=== PATIENT | female | born 1960 | race Caucasian/White ===

== ENCOUNTER → 2016-07-28 | Outpatient (CLI) | payer BC, OTHER ==
[~2016-07-28] MED LIST: ALPR0.25 PO; AMLO5TAB2 PO; ASPI325T32 PO; ATOR10TA66 PO; CITA20TA7 PO; ENAL10TA PO; ENOX40DI8 SC; LEVO88TA54 PO; METO-272 PO; METO-274 PO
--- NOTE | 2016-07-29 17:08 | Diagnostic Imaging Report ---
Bilateral screening mammogram The current study was also evaluated with a Computer Aided Detection (CAD) system. Indication: Screening. No current complaints stated on the questionnaire. COMPARISON: None available. Reportedly there is a prior from mammograms performed in [facility] 5 years ago, however this could not be located. Findings: The breasts are composed of scattered fibroglandular densities. Occasional benign-appearing calcifications are seen. There is an intramammary lymph node in the outer aspect of the left breast with no suspicious features. IMPRESSION: No mammographic evidence of malignancy. ACR BI-RADS Category 2: Benign findings. Result letter will be mailed to the patient. Note: At least 10% of breast cancer is not imaged by mammography. Dictated by: Dictated on workstation # [id number]
== END ==
LOC: RAD 15:05
PROVIDERS: ATTEND Family Medicine
DX: Z12.31 Encounter for screening mammogram for malignant neoplasm of breast (principal)
CPT/HCPCS: 77067

== ENCOUNTER 2016-09-09 05:41 | Outpatient (CLI) | payer OTHER ==
[~2016-09-09] VITALS: Ht 160 cm; Wt 77.1 kg
== END 2016-09-09 11:58 ==
LOC: PREOP 05:41
PROVIDERS: ATTEND Surgery
DX: Z01.818 Encounter for other preprocedural examination (principal); Z12.11 Encounter for screening for malignant neoplasm of colon

== ENCOUNTER 2016-09-13 09:46 | Day surgery (SDC) | payer OTHER ==
[~2016-09-13] VITALS: Ht 160 cm; Wt 77.1 kg
[~2016-09-13 09:46] MED LIST changes: -METO-272 PO; -METO-274 PO; +METO-370 PO; +METO-395 PO
[2016-09-13] MEDS ORDERED: NS IV 500 ML 500 ML ONE (09:51)
[2016-09-13] MEDS ORDERED: NS IV 500 ML 500 ML IV PRN (10:00)
[2016-09-13 10:30] VITALS: BP 129/77
[2016-09-13] MEDS ORDERED: fentaNYL INJECTION 100 MCG/2 ML AMP ONE ×2 (10:47→11:42)
[2016-09-13] MEDS ORDERED: MIDAZOLAM 2 MG/2 ML (VERSED) VIAL ONE ×3 (10:47)
--- NOTE | 2016-09-13 11:00 | Conscious Sedation/ASA ---
Conscious Sedation Pre-Proced Time Reviewed: 11:00 ASA Class: 2 Airway Mallampati Classification: ([place] appropriate class) I. II. III, IV Lungs Heart ASA score ASA 1: a normal healthy patient ASA 2: a patient with a mild systemic disease (mid diabetes, controlled hypertension, obesity ASA 3: a patient with a severe systemic disease that limits activity (angina , COPD, prior Myocardial infarction) ASA 4: a patient with an incapacitating disease that is a constant threat to life (CHF, renal failure) ASA 5: a moribund patient not expected to survive 24 hrs. (ruptured aneurysm) ASA 6: a declared brain patient whose organs are being harvested. For emergent operations, add the letter E after the classification Grade 1 Sedation Plan: Discussed options with patient/fam Note The patient is an appropriate candidate to undergo the planned procedure, sedation, and anesthesia. The patient immediately re-assessed prior to indication. ZHANE RIVER MD Sep 13, 2016 11:00 am
--- NOTE | 2016-09-13 11:00 | History & Physicial ---
History of Present Illness History of Present Illness Reason for visit/HPI to undergo screening colonoscopy. Reports a family history of colon cancer in her mother. Date of Admission Date Seen by Provider: Sep 13, 2016 Time Seen by Provider: 10:59 I consulted on this patient on 09/13/16 10:58 Attending Physician Getachew River MD Admitting Physician Gamal Castillo MD Consult Allergies and Home Medications Allergies Coded Allergies: No Known Drug Allergies (Unverified , 09/09/16) Home Medications Alprazolam 0.25 Mg Tablet, 0.25 MG PO Q8H PRN for ANXIETY, #10 Ref 0 Prescribed by: RENATA LEPE on 09/24/15 1805 Amlodipine Besylate 5 Mg Tablet, 10 MG PO DAILY, #30 Prescribed by: ROB PARISH on 09/23/15 1032 Aspirin 325 Mg Tablet.dr, 325 MG PO DAILY, #1 Prescribed by: ALEJANDRO COFFEY on 09/11/15 0910 Atorvastatin Calcium 10 Mg Tablet, 10 MG PO HS, #30 Prescribed by: RONI KING on 09/11/15 0930 Citalopram Hydrobromide 20 Mg Tablet, 20 MG PO DAILY, #30 Prescribed by: ROB PARISH on 09/23/15 1032 Enalapril Maleate 10 Mg Tablet, 20 MG PO DAILY@0700, #1 Prescribed by: ALEJANDRO COFFEY on 09/11/15 0910 Levothyroxine Sodium 88 Mcg Tablet, 88 MCG PO HS, (Reported) Metoprolol Succinate 100 Mg Tab.er.24h, 100 MG PO HS, #30 Prescribed by: ORB PARISH on 09/23/15 1032 Past Xykkipf-Loekuf-Nvrdme Hx Patient Social History Marrital Status: Employed/Student: employed Alcohol Use: Denies Use Recreational Drug Use: No Smoking Status: Current Everyday Smoker Type Used: Cigarettes Recent Foreign Travel: No Contact w/other who traveled: No Recent Hopitalizations: No Recent Infectious Disease Expo: No Immunizations Up To Date Tetanus Booster (TDap): Less than 5yrs Date of Influenza Vaccine: Nov 24, 2015 Seasonal Allergies Seasonal Allergies: No Surgeries HX Surgeries: Yes Surgeries: Appendectomy, Section Respiratory Hx Respiratory Disorders: No Cardiovascular Hx Cardiovascular Disorders: Yes Cardiac Disorders: High Cholesterol, Hypertension Neurological Hx Neurological Disorders: Yes Neurological Disorders: Stroke Reproductive System Hx Reproductive Disorders: No Genitourinary Hx Genitourinary Disorders: No Gastrointestinal Hx Gastrointestinal Disorders: No Musculoskeletal Hx Musculoskeletal Disorders: No Endocrine Hx Endocrine Disorders: Yes Endocrine Disorders: Hypothyroidsim HEENT HX ENT Disorders: Yes (GLASSES) Loss of Vision: Bilateral Hearing Impairment: Denies Cancer Hx Cancer: No Psychosocial Hx Psychiatric Problems: Yes Behavioral Health Disorders: Anxiety Integumentary HX Skin/Integumentary Disorder: No Blood Transfusions Hx Blood Disorders: No Adverse Reaction to a Blood Tr: No (N/A) Family Medical History Significant Family History: Diabetes Family Hx: Arthritis G8 BROTHER Colon cancer 19 MOTHER Diabetes mellitus 19 FATHER FH: atrial fibrillation 19 MOTHER G8 SISTER FH: thyroid cancer Thyroid disease 19 FATHER Constitutional: no symptoms reported EENTM: no symptoms reported Respiratory: no symptoms reported Cardiovascular: no symptoms reported Gastrointestinal: no symptoms reported Genitourinary: no symptoms reported Musculoskeletal: no symptoms reported Skin: no symptoms reported Psychiatric/Neurological: No Symptoms Reported Physical Exam Vital Signs Vital Sign - Last 12Hours 09/13/16 10:30 Temp 97.8 Pulse 56 Resp 16 B/P (MAP) 129/77 Pulse Ox 95 O2 Delivery Room Air Capillary Refill : General Appearance: No Apparent Distress HEENT: Normal ENT Inspection Neck: Normal Inspection Respiratory: Lungs Clear Cardiovascular: Regular Rate, Rhythm Gastrointestinal: Non Tender, Soft Rectal: Deferred Extremity: Normal Inspection Neurologic/Psychiatric: Alert, Oriented x3 Skin: Warm/Dry Assessment/Plan Assessment and Plan lady with a family history of colon cancer. For screening colonoscopy. Findings of polyps, diverticulosis etc. discussed. Complications of iatrogenic perforation and a post polypectomy bleeding reviewed. Seems to be in agreement to proceed. Problems: GETACHEW RIVER MD Sep 13, 2016 11:00 am
[2016-09-13] MEDS: fentaNYL INJECTION 100 MCG/2 ML AMP IVP PRN ×4 (11:33→11:50)
[2016-09-13] MEDS: MIDAZOLAM 2 MG/2 ML (VERSED) VIAL IVP PRN ×3 (11:35→11:47)
--- NOTE | 2016-09-13 12:02 | Endo Procedure Record ---
Endo Procedure Report Date of Procedure Sep 13, 2016 Surgeon (s) ZHANE RIVER MD Post Procedure/Op Diagnosis normal colonoscopy Procedure Performed colonoscopy to cecum Description of Procedure Anesthesia Type: Conscious Sedation Specimen(s) collected/removed none Description of the Procedure Indication for procedure: This lady came in for screening colonoscopy. She reported a family history of colon cancer in her mother.informed consent was obtained after reviewing the procedure in detail. Description of the procedure: She was placed in left lateral decubitus position and her vital signs were monitored. Conscious sedation was achieved using Versed and fentanyl. Digital rectal examination was unremarkable. The colonoscope was then introduced in the rectum and advanced all the way up to the cecum. Quality of bowel preparation was rather suboptimal, mainly toward the right colon. The scope was then withdrawn slowly and the mucosa examined in a systematic fashion. There was no abnormality. She tolerated the procedure well and was taken back to the nursing area in a stable condition. Impression: Normal screening colonoscopy. Positive family history. Recommend repeating in 5 years and of dictation Copies To: EMMA DUEÑAS MD, XAVIER M MD Sep 13, 2016 12:02 pm
--- NOTE | 2016-09-13 12:03 | Discharge Inst-Simple/Standard ---
Discharge Inst-Standard Discharge Medications New, Converted or Re-Newed RX: Other Patient Instructions/Follow Up Plan of Care/Instructions/FU: repeat colonoscopy in 5 years Activity as Tolerated: Yes Discharge Diet: No Restrictions ZHANE RIVER MD Sep 13, 2016 12:03 pm
[2016-09-13 12:10] VITALS: BP 107/69
[2016-09-13 12:40] VITALS: BP 111/67
== END 2016-09-13 13:14 | disposition home or self-care (01) ==
LOC: ENDO 09:46
PROVIDERS: ATTEND Surgery
DX: Z12.11 Encounter for screening for malignant neoplasm of colon (principal); Z80.0 Family history of malignant neoplasm of digestive organs; F17.210 Nicotine dependence, cigarettes, uncomplicated; E78.00 Pure hypercholesterolemia, unspecified; I10 Essential (primary) hypertension; Z86.73 Personal history of transient ischemic attack (TIA), and cerebral infarction without residual deficits; E03.9 Hypothyroidism, unspecified; F41.9 Anxiety disorder, unspecified; Z79.899 Other long term (current) drug therapy; Z79.82 Long term (current) use of aspirin

== ENCOUNTER → 2020-09-16 | Outpatient (CLI) | payer BC ==
[~2020-09-16] MED LIST changes: +AMLO-250 PO; -AMLO5TAB2 PO; -CITA20TA7 PO; +CITA20TA9 PO; -ENAL10TA PO; +ENAL10TA16 PO; -METO-370 PO; -METO-395 PO; +METO50TA7 PO; +MTP100TCR PO
--- NOTE | 2020-09-16 18:45 | Diagnostic Imaging Report ---
INDICATION: Routine screening. COMPARISON is made with prior mammogram from 07/28/2016. 2-D and 3-D bilateral screening mammography was performed with CAD. Scattered fibroglandular densities are identified bilaterally. Intraparenchymal lymph node in the outer left breast appears stable. There are scattered benign calcifications. No new mass or malignant-appearing microcalcifications are seen. Axillae are unremarkable. IMPRESSION: BI-RADS Category 2 No mammographic features suspicious for malignancy are identified. ACR BI-RADS Category 2: Benign findings. Result letter will be mailed to the patient. Note: At least 10% of breast cancer is not imaged by mammography. Dictated by: Dictated on workstation # [id number]
== END ==
LOC: RAD 15:00
PROVIDERS: ATTEND Family Medicine
DX: Z12.31 Encounter for screening mammogram for malignant neoplasm of breast (principal)
CPT/HCPCS: 77063; 77067